=== PATIENT | female | born 1975 | race Native Hawaiian/Other Pacific Islander ===

== ENCOUNTER 2017-07-31 19:23 | Emergency (ER) | payer OTHER ==
[~2017-07-31] VITALS: Ht 167.6 cm; Wt 40.8 kg
[~2017-07-31 19:23] MED LIST: ALPR1TAB61 PO; BENADRYL25 M1 PO; CLON0.5T36 PO; DICY20TA34 PO; GABA300C2 PO; HYDR-2748 PO; HYDR10TA47 PO; LISI10TA11 PO; PRED5TAB3 PO; PREG50CA PO; RANITIDINE 150150 MG PO; TOPAMAX25 MG PO; TOPIRAMATE50 MG PO; TRAZ50TA36 PO; ZOFRAN8 MG PO
[2017-07-31 21:59] LABS: PLATELET COUNT 310 K/uL (152-353)
[2017-07-31 22:08] LABS: POTASSIUM 2.8 mmol/L (3.6-5.2)
[2017-08-01 03:27] VITALS: BP 129/75; TEMP 98.1
== END 2017-08-01 03:34 | disposition home or self-care (01) ==
LOC: ED 19:23
PROVIDERS: Family Medicine
DX: N39.0 Urinary tract infection, site not specified (principal); R10.84 Generalized abdominal pain; K21.9 Gastro-esophageal reflux disease without esophagitis; E86.0 Dehydration; E87.6 Hypokalemia
CPT/HCPCS: 36415; 80053; 81000; 83605; 85027; 87077; 87086; 87088; 87186; 96361; 96365; 99284

== ENCOUNTER 2018-04-24 10:03 | Outpatient (CLI) | payer OTHER | END 2018-04-24 19:25 | disposition home or self-care (01) | LOC: INF 10:03 → EDSTATUS 10:27 → INF 19:25 | DX: N39.0 Urinary tract infection, site not specified (principal) ==

== ENCOUNTER 2018-09-22 06:40 | Emergency (ER) | payer OTHER ==
[~2018-09-22] VITALS: Ht 167.6 cm; Wt 54.4 kg
[2018-09-22] MEDS ORDERED: KEPPRA1000 MG PO (07:08)
[2018-09-22] MEDS ORDERED: ZOFRAN8 MG PO (07:11)
[2018-09-22] MEDS ORDERED: CAFF PO (07:11)
[2018-09-22] MEDS ORDERED: ASA PO (07:11)
[2018-09-22] MEDS ORDERED: BUTAL PO (07:11)
[2018-09-22] MEDS ORDERED: PROM25TA52 PO (07:12)
[2018-09-22 08:15] LABS: PLATELET COUNT 269 K/uL (152-353)
[2018-09-22 08:21] LABS: POTASSIUM 4.6 mmol/L (3.6-5.2)
[2018-09-22 10:55] VITALS: BP 138/88; TEMP 98
== END 2018-09-22 10:55 | disposition home or self-care (01) ==
LOC: ED 06:40
PROVIDERS: Family Medicine
PROC: 0T9B70Z Drainage of Bladder with Drainage Device, Via Natural or Artificial Opening (ICD-10-PCS; principal; 2018-09-22)
DX: N39.0 Urinary tract infection, site not specified (principal); R33.8 Other retention of urine
CPT/HCPCS: 36415; 51702; 80053; 81000; 85027; 87070; 87077; 87086; 87088; 87186; 99283; J1885

== ENCOUNTER 2018-10-19 18:10 | Emergency (ER) | payer OTHER ==
[~2018-10-19] VITALS: Ht 167.6 cm; Wt 54.4 kg
[~2018-10-19 18:10] MED LIST changes: +ASA PO; +BUTAL PO; +CAFF PO; +KEPPRA1000 MG PO; +PROM25TA52 PO
[2018-10-19 19:20] LABS: PLATELET COUNT 282 K/uL (152-353)
[2018-10-19 22:35] VITALS: BP 122/80; TEMP 98
== END 2018-10-19 22:41 | disposition home or self-care (01) ==
LOC: ED 18:10
DX: N30.80 Other cystitis without hematuria (principal)
CPT/HCPCS: 36415; 74022; 80053; 81000; 83605; 85027; 87086; 87088; 96365; 96375; 99284; J1580; J1885; J2550

== ENCOUNTER 2019-02-27 18:48 | Outpatient (CLI) | payer OTHER | END 2019-02-27 18:54 | disposition short-term general hospital (02) | LOC: AMB 18:48 | DX: R11.2 Nausea with vomiting, unspecified (principal); R31.9 Hematuria, unspecified | CPT/HCPCS: A0425; A0427 ==

== ENCOUNTER 2019-02-27 19:08 | Emergency (ER) | payer OTHER ==
[~2019-02-27] VITALS: Ht 167.6 cm; Wt 54.4 kg
[2019-02-27 19:14] VITALS: BP 121/89; TEMP 99
== END 2019-02-27 19:40 | disposition home or self-care (01) ==
LOC: ED 19:08
DX: R31.9 Hematuria, unspecified (principal); R10.84 Generalized abdominal pain
CPT/HCPCS: 99281

== ENCOUNTER 2019-04-27 10:22 | Emergency (ER) | payer OTHER ==
[~2019-04-27] VITALS: Ht 167.6 cm; Wt 54.4 kg
[2019-04-27 10:32] VITALS: TEMP 98.2
[2019-04-27 13:22] VITALS: BP 144/76
== END 2019-04-27 13:21 | disposition home or self-care (01) ==
LOC: ED 10:22
DX: F41.8 Other specified anxiety disorders (principal); R06.4 Hyperventilation; Z98.890 Other specified postprocedural states
CPT/HCPCS: 85379; 93005; 99283

== ENCOUNTER 2019-04-29 11:12 | Outpatient (CLI) | payer OTHER ==
[2019-04-29 12:19] LABS: POTASSIUM 4.3 mmol/L (3.6-5.2)
== END 2019-04-29 23:49 | disposition home or self-care (01) ==
LOC: LAB 11:12
PROVIDERS: Internal Medicine
DX: N39.0 Urinary tract infection, site not specified (principal); B96.20 Unspecified Escherichia coli [E. coli] as the cause of diseases classified elsewhere; Z79.2 Long term (current) use of antibiotics
CPT/HCPCS: 80053; 80200

== ENCOUNTER 2019-05-04 08:57 | Outpatient (CLI) | payer OTHER ==
[2019-05-04 15:20] LABS: POTASSIUM 3.9 mmol/L (3.6-5.2)
== END 2019-05-04 22:58 | disposition home or self-care (01) ==
LOC: LAB 08:57
PROVIDERS: Internal Medicine
DX: N39.0 Urinary tract infection, site not specified (principal); B96.20 Unspecified Escherichia coli [E. coli] as the cause of diseases classified elsewhere; Z79.2 Long term (current) use of antibiotics
CPT/HCPCS: 80053; 80200

== ENCOUNTER 2019-12-23 12:17 | Emergency (ER) | payer OTHER ==
[~2019-12-23] VITALS: Ht 167.6 cm; Wt 58.1 kg
[2019-12-23 12:26] VITALS: TEMP 98.4
[2019-12-23 14:13] VITALS: BP 133/59
== END 2019-12-23 14:13 | disposition home or self-care (01) ==
LOC: ED 12:17
DX: R82.81 Pyuria (principal)
CPT/HCPCS: 81000; 87077; 87086; 87088; 87186; 96372; 99283; J1885

== ENCOUNTER 2019-12-29 04:39 | Emergency (ER) | payer OTHER ==
[~2019-12-29] VITALS: Ht 167.6 cm; Wt 58.1 kg
[2019-12-29 05:11] VITALS: BP 154/91; TEMP 97.9
== END 2019-12-29 05:11 | disposition home or self-care (01) ==
LOC: ED 04:39
DX: Z46.6 Encounter for fitting and adjustment of urinary device (principal)
CPT/HCPCS: 99282

== ENCOUNTER 2020-01-18 16:19 | Outpatient (CLI) | payer OTHER | END 2020-01-18 16:22 | disposition short-term general hospital (02) | LOC: AMB 16:19 | DX: M25.571 Pain in right ankle and joints of right foot (principal); M79.604 Pain in right leg; M25.551 Pain in right hip; M54.5 Low back pain; M54.2 Cervicalgia; V89.2XXA Person injured in unspecified motor-vehicle accident, traffic, initial encounter; Y92.89 Other specified places as the place of occurrence of the external cause | CPT/HCPCS: A0425; A0427 ==

== ENCOUNTER 2020-01-18 16:29 | Emergency (ER) | payer OTHER ==
[~2020-01-18] VITALS: Ht 167.6 cm; Wt 58.1 kg
[2020-01-18 16:54] LABS: PLATELET COUNT 182 K/uL (152-353)
[2020-01-18 17:02] LABS: POTASSIUM 3.4 mmol/L (3.6-5.2)
[2020-01-18 21:16] VITALS: BP 136/88; TEMP 98.4
== END 2020-01-18 21:17 | disposition home or self-care (01) ==
LOC: ED 16:29
PROVIDERS: Family Medicine
DX: N39.0 Urinary tract infection, site not specified (principal); E87.6 Hypokalemia; S32.19XA Other fracture of sacrum, initial encounter for closed fracture; S32.2XXA Fracture of coccyx, initial encounter for closed fracture; V89.2XXA Person injured in unspecified motor-vehicle accident, traffic, initial encounter; Y92.89 Other specified places as the place of occurrence of the external cause
CPT/HCPCS: 80053; 80307; 81000; 85027; 87086; 87088; 96374; 99284; J1885

== ENCOUNTER 2020-06-24 16:05 | Emergency (ER) | payer OTHER ==
[~2020-06-24] VITALS: Ht 167.6 cm; Wt 54.4 kg
[2020-06-24 16:35] VITALS: BP 193/94; TEMP 99.8
== END 2020-06-24 17:30 | disposition home or self-care (01) ==
LOC: ED 16:05
DX: M54.5 Low back pain (principal)
CPT/HCPCS: 99281

== ENCOUNTER 2020-12-24 11:19 | Emergency (ER) | payer OTHER ==
[~2020-12-24] VITALS: Ht 167.6 cm; Wt 56.7 kg
[2020-12-24 11:55] VITALS: BP 158/96; TEMP 98.8
== END 2020-12-24 11:55 | disposition home or self-care (01) ==
LOC: ED 11:19
PROC: 0TWBX0Z Revision of Drainage Device in Bladder, External Approach (ICD-10-PCS; principal; 2020-12-24)
DX: T83.098A Other mechanical complication of other urinary catheter, initial encounter (principal); W54.8XXA Other contact with dog, initial encounter; Y92.89 Other specified places as the place of occurrence of the external cause
CPT/HCPCS: 99281

== ENCOUNTER 2021-07-09 08:42 | Emergency (ER) | payer OTHER ==
[~2021-07-09] VITALS: Ht 167.6 cm; Wt 59.0 kg
[2021-07-09 08:42] VITALS: TEMP 97.5
[2021-07-09 09:56] LABS: POTASSIUM 4.4 mmol/L (3.6-5.2)
[2021-07-09 10:04] LABS: PLATELET COUNT 266 K/uL (152-353)
[2021-07-09 12:32] VITALS: BP 137/82
== END 2021-07-09 12:32 | disposition home or self-care (01) ==
LOC: ED 08:45
PROVIDERS: Emergency Medicine Emergency Medical Services
PROC: 0T2BX0Z Change Drainage Device in Bladder, External Approach (ICD-10-PCS; principal; 2021-07-09)
DX: R31.9 Hematuria, unspecified (principal)
CPT/HCPCS: 80053; 81000; 85027; 87077; 87086; 87088; 87186; 96360; 96375; 99284; J1885; J2270; Q9963

== ENCOUNTER 2021-11-10 15:10 | Emergency (ER) | payer OTHER ==
[~2021-11-10] VITALS: Ht 167.6 cm; Wt 59.0 kg
[2021-11-10 15:26] VITALS: BP 153/105; TEMP 97.4
== END 2021-11-10 16:14 | disposition home or self-care (01) ==
LOC: ED 15:10
PROC: 0T9B70Z Drainage of Bladder with Drainage Device, Via Natural or Artificial Opening (ICD-10-PCS; principal; 2021-11-10)
DX: F41.8 Other specified anxiety disorders (principal); R39.198 Other difficulties with micturition
CPT/HCPCS: 51702; 99282

== ENCOUNTER 2021-11-18 12:10 | Emergency (ER) | payer OTHER ==
[~2021-11-18] VITALS: Ht 167.6 cm; Wt 58.1 kg
[2021-11-18 15:45] VITALS: BP 171/84; TEMP 98.2
== END 2021-11-18 15:45 | disposition home or self-care (01) ==
LOC: ED 12:10
DX: M54.59 Other low back pain (principal); G89.29 Other chronic pain
CPT/HCPCS: 81000; 96365; 96372; 96375; 99284; J0696; J1580; J1642; J1885; J2360; J2405

== ENCOUNTER 2022-01-27 09:19 | Inpatient (IN) | payer OTHER ==
[~2022-01-27] VITALS: Ht 167.6 cm; Wt 64.5 kg
[~2022-01-27 09:19] MED LIST changes: +ONDANSETRON4 M2 PO
[2022-01-27 09:20] VITALS: BP 118/72; TEMP 97.66
[2022-01-27 10:00] VITALS: BP 138/73
[2022-01-27 10:04] LABS: PLATELET COUNT 167 K/uL (152-353)
[2022-01-27 10:11] LABS: POTASSIUM 3.2 mmol/L (3.6-5.2)
[2022-01-27 11:00] VITALS: BP 166/92
[2022-01-27 12:23] VITALS: BP 169/74; TEMP 97.9; Ht 167.6 cm; Wt 64.5 kg
[2022-01-27 16:00] VITALS: BP 133/72; TEMP 97.9
[2022-01-27 20:00] VITALS: BP 112/62; TEMP 98.1
[2022-01-27] MEDS ORDERED: CYAN10009 IM (20:14)
[2022-01-27] MEDS ORDERED: CYCLOBENZAPRINE10 MG PO (20:15)
[2022-01-27] MEDS ORDERED: FLUDROCORT0.1 MG PO (20:19)
[2022-01-27] MEDS ORDERED: HYDROCORT10 MG PO (20:24)
[2022-01-27] MEDS ORDERED: ROWEEPRA500 MG PO (20:27)
[2022-01-27] MEDS ORDERED: OXYCODONE HYDROC5 M1 PO (20:28)
[2022-01-27] MEDS ORDERED: QUETIAPINE50 MG PO (20:30)
[2022-01-27] MEDS ORDERED: CLON1TAB18 PO (20:31)
[2022-01-27] MEDS ORDERED: PANTOPRAZOLE SO40 M1 PO (20:37)
[2022-01-28] VITALS (8 sets, daily range): BP systolic 121–171; BP diastolic 66–90; TEMP 97.7–98.2
[2022-01-28 05:24] LABS: PLATELET COUNT 133 K/uL (152-353)
[2022-01-28 05:44] LABS: POTASSIUM 3.8 mmol/L (3.6-5.2)
[2022-01-29 03:46] VITALS: BP 161/82; TEMP 97.9
[2022-01-29 08:00] VITALS: BP 157/84; TEMP 97.9
[2022-01-29 12:00] VITALS: BP 136/87; TEMP 99.2
[2022-01-29 16:00] VITALS: BP 133/79; TEMP 98.4
[2022-01-29 19:49] VITALS: BP 150/70; TEMP 98.2
[2022-01-29 23:41] VITALS: BP 104/58
[2022-01-30 04:00] VITALS: BP 137/79; TEMP 97.5
[2022-01-30 05:38] LABS: PLATELET COUNT 145 K/uL (152-353)
[2022-01-30 05:45] LABS: POTASSIUM 3.5 mmol/L (3.6-5.2)
[2022-01-30 08:00] VITALS: BP 147/73; TEMP 98.2
[2022-01-30 12:00] VITALS: BP 142/68; TEMP 98.6
== END 2022-01-30 21:06 | disposition home or self-care (01) | DRG 699 ==
LOC: ED 09:19 → MED/SURG 11:00
PROVIDERS: Emergency Medicine; ADMIT Internal Medicine Endocrinology, Diabetes & Metabolism; ATTEND Internal Medicine Endocrinology, Diabetes & Metabolism
DX: T83.518A Infection and inflammatory reaction due to other urinary catheter, initial encounter (principal); N10 Acute pyelonephritis; G40.802 Other epilepsy, not intractable, without status epilepticus; E27.1 Primary adrenocortical insufficiency; K50.90 Crohn's disease, unspecified, without complications; B96.20 Unspecified Escherichia coli [E. coli] as the cause of diseases classified elsewhere; I10 Essential (primary) hypertension; G89.4 Chronic pain syndrome; Y65.8 Other specified misadventures during surgical and medical care
CPT/HCPCS: 80048; 80053; 81000; 85027; 87077; 87086; 87088; 87186; 87635; 96360; 96365; 96375; 99284; J1170; J1335; J1650; J1885; J1940; J2405; J2543; U0003

== ENCOUNTER 2022-01-31 13:35 | Emergency (ER) | payer OTHER ==
[~2022-01-31] VITALS: Ht 167.6 cm; Wt 67.1 kg
[~2022-01-31 13:35] MED LIST changes: +CLON1TAB18 PO; +CYAN10009 IM; +CYCLOBENZAPRINE10 MG PO; +FLUDROCORT0.1 MG PO; +HYDROCORT10 MG PO; +OXYCODONE HYDROC5 M1 PO; +PANTOPRAZOLE SO40 M1 PO; +QUETIAPINE50 MG PO; +ROWEEPRA500 MG PO
[2022-01-31 13:40] VITALS: TEMP 96.9
[2022-01-31 15:00] VITALS: BP 145/79
== END 2022-01-31 15:05 | disposition home or self-care (01) ==
LOC: ED 13:35
DX: G89.29 Other chronic pain (principal); Z93.6 Other artificial openings of urinary tract status
CPT/HCPCS: 81000; 96374; 96375; 99284; J1170; J1885; J2405

== ENCOUNTER 2022-02-01 14:41 | Outpatient (CLI) | payer OTHER ==
[~2022-02-01] VITALS: Ht 167.6 cm; Wt 59.0 kg
== END 2022-02-01 21:49 | disposition home or self-care (01) ==
LOC: INF 14:41
PROVIDERS: ATTEND Internal Medicine Endocrinology, Diabetes & Metabolism
DX: N30.80 Other cystitis without hematuria (principal)
CPT/HCPCS: 96365; J1335

== ENCOUNTER 2022-02-02 13:19 | Outpatient (CLI) | payer OTHER ==
[~2022-02-02] VITALS: Ht 167.6 cm; Wt 62.1 kg
== END 2022-02-02 19:24 | disposition home or self-care (01) ==
LOC: INF 13:19
PROVIDERS: ATTEND Internal Medicine Endocrinology, Diabetes & Metabolism
DX: N30.80 Other cystitis without hematuria (principal)
CPT/HCPCS: 96360; J1335

== ENCOUNTER 2022-02-03 12:57 | Emergency (ER) | payer OTHER ==
[~2022-02-03] VITALS: Ht 167.6 cm; Wt 62.1 kg
[2022-02-03 13:13] VITALS: BP 161/96; TEMP 97
[2022-02-03 15:21] LABS: PLATELET COUNT 207 K/uL (152-353)
[2022-02-03 15:30] LABS: POTASSIUM 3.9 mmol/L (3.6-5.2)
== END 2022-02-03 17:12 | disposition home or self-care (01) ==
LOC: ED 12:57
PROVIDERS: Emergency Medicine
DX: N39.0 Urinary tract infection, site not specified (principal)
CPT/HCPCS: 36415; 80053; 81000; 85027; 87040; 87077; 87086; 87088; 87185; 87186; 87205; 96365; 96375; 99284; J1642; J2185

== ENCOUNTER 2022-02-04 13:46 | Outpatient (CLI) | payer OTHER ==
[~2022-02-04] VITALS: Ht 152.4 cm; Wt 68.0 kg
== END 2022-02-04 20:12 | disposition home or self-care (01) ==
LOC: INF 13:46
PROVIDERS: ATTEND Internal Medicine Endocrinology, Diabetes & Metabolism
DX: N30.00 Acute cystitis without hematuria (principal)
CPT/HCPCS: 96365; J1335

== ENCOUNTER 2022-02-07 12:46 | Outpatient (CLI) | payer OTHER ==
[~2022-02-07] VITALS: Ht 167.6 cm; Wt 58.9 kg
== END 2022-02-07 20:42 | disposition home or self-care (01) ==
LOC: INF 12:46
PROVIDERS: ATTEND Internal Medicine Endocrinology, Diabetes & Metabolism
DX: N30.00 Acute cystitis without hematuria (principal)
CPT/HCPCS: 96372; 96374; J1335

== ENCOUNTER 2022-02-08 12:19 | Outpatient (CLI) | payer OTHER ==
[~2022-02-08] VITALS: Ht 167.6 cm; Wt 68.0 kg
[2022-02-08 13:10] VITALS: BP 120/87; TEMP 98
[2022-02-08 13:40] VITALS: BP 122/88; TEMP 98
== END 2022-02-08 19:38 | disposition home or self-care (01) ==
LOC: INF 12:19
PROVIDERS: ATTEND Internal Medicine Endocrinology, Diabetes & Metabolism
DX: N30.00 Acute cystitis without hematuria (principal)
CPT/HCPCS: 96372; J1335

== ENCOUNTER 2022-02-08 17:44 | Emergency (ER) | payer OTHER ==
[~2022-02-08] VITALS: Ht 167.6 cm; Wt 68.0 kg
[2022-02-08 19:28] VITALS: BP 160/89; TEMP 97.3
== END 2022-02-08 19:28 | disposition home or self-care (01) ==
LOC: ED 17:44
DX: N30.10 Interstitial cystitis (chronic) without hematuria (principal); N39.0 Urinary tract infection, site not specified; G89.29 Other chronic pain
CPT/HCPCS: 81000; 87086; 87088; 96372; 99283; J1885; J2405

== ENCOUNTER 2022-02-09 12:30 | Outpatient (CLI) | payer OTHER ==
[2022-02-09 12:50] VITALS: BP 97/56; TEMP 98
[2022-02-09 13:15] VITALS: BP 100/60; TEMP 98
== END 2022-02-09 19:35 | disposition home or self-care (01) ==
LOC: INF 12:30
PROVIDERS: ATTEND Internal Medicine Endocrinology, Diabetes & Metabolism
DX: N30.00 Acute cystitis without hematuria (principal)
CPT/HCPCS: 96372; J1335; J1642

== ENCOUNTER 2022-02-10 12:24 | Outpatient (CLI) | payer OTHER ==
[2022-02-10 12:20] VITALS: BP 142/73; TEMP 98.4
== END 2022-02-10 21:39 | disposition home or self-care (01) ==
LOC: INF 12:24
PROVIDERS: ATTEND Internal Medicine Endocrinology, Diabetes & Metabolism
DX: N30.00 Acute cystitis without hematuria (principal)
CPT/HCPCS: 96372; J1335

== ENCOUNTER 2022-02-11 12:19 | Outpatient (CLI) | payer OTHER ==
[~2022-02-11] VITALS: Ht 167.6 cm; Wt 62.1 kg
== END 2022-02-11 19:12 | disposition home or self-care (01) ==
LOC: INF 12:19
PROVIDERS: ATTEND Internal Medicine Endocrinology, Diabetes & Metabolism
DX: N30.00 Acute cystitis without hematuria (principal)
CPT/HCPCS: 96372; J1335

== ENCOUNTER 2022-03-19 23:00 | Observation (INO) | payer OTHER ==
[~2022-03-19] VITALS: Ht 167.6 cm; Wt 66.5 kg
[2022-03-19 23:00] VITALS: BP 148/88; TEMP 98.2
[~2022-03-19 23:00] MED LIST changes: +OXYCODONE HYDRO10 MG PO
[2022-03-20] VITALS (12 sets, daily range): BP systolic 108–155; BP diastolic 57–87; TEMP 97.6–98.4; Ht 167.6 cm; Wt 66.5 kg
[2022-03-20 01:47] LABS: PLATELET COUNT 166 K/uL (152-353)
[2022-03-20 02:07] LABS: POTASSIUM 3.5 mmol/L (3.6-5.2)
[2022-03-20] MEDS ORDERED: MONUROL PO (06:50)
[2022-03-20] MEDS ORDERED: MINOCYCLINE HY100 MG PO (06:52)
[2022-03-20] MEDS ORDERED: ACIDOPHILUS PO (06:56)
[2022-03-20] MEDS ORDERED: AMITRIPTYLINE H25 MG PO (07:26)
[2022-03-20] MEDS ORDERED: HYDR10TA PO (07:28)
[2022-03-20 08:30] LABS: PLATELET COUNT 150 K/uL (152-353)
[2022-03-20 08:31] LABS: POTASSIUM 3.4 mmol/L (3.6-5.2)
[2022-03-21 04:09] VITALS: BP 122/71; TEMP 97.7
[2022-03-21 04:27] LABS: PLATELET COUNT 133 K/uL (152-353)
[2022-03-21 04:52] LABS: POTASSIUM 3.6 mmol/L (3.6-5.2)
[2022-03-21 08:00] VITALS: BP 124/75; TEMP 97.6
[2022-03-21 12:00] VITALS: BP 153/71; TEMP 97.9
== END 2022-03-21 15:15 | disposition home or self-care (01) ==
LOC: ED 23:00 → MED/SURG 03-20 04:20
PROVIDERS: Emergency Medicine; ADMIT Internal Medicine; ATTEND Internal Medicine
DX: N36.0 Urethral fistula (principal); N39.0 Urinary tract infection, site not specified; B96.5 Pseudomonas (aeruginosa) (mallei) (pseudomallei) as the cause of diseases classified elsewhere; F41.8 Other specified anxiety disorders; E27.1 Primary adrenocortical insufficiency; G40.802 Other epilepsy, not intractable, without status epilepticus; K21.9 Gastro-esophageal reflux disease without esophagitis; G89.4 Chronic pain syndrome; J44.9 Chronic obstructive pulmonary disease, unspecified
CPT/HCPCS: 36415; 36591; 80048; 80053; 81000; 83690; 85027; 87088; 87635; 96360; 96361; 96374; 99220; 99284; G0378; J1642; J2270; Q9963; U0003

== ENCOUNTER 2022-05-11 12:23 | Emergency (ER) | payer OTHER ==
[~2022-05-11] VITALS: Ht 167.6 cm; Wt 66.2 kg
[~2022-05-11 12:23] MED LIST changes: +ACIDOPHILUS PO; +AMITRIPTYLINE H25 MG PO; +HYDR10TA PO; +MINOCYCLINE HY100 MG PO; +MONUROL PO
[2022-05-11 12:32] VITALS: BP 116/63; TEMP 97.5
[2022-05-11 13:12] LABS: PLATELET COUNT 183 K/uL (152-353)
== END 2022-05-11 14:13 | disposition home or self-care (01) ==
LOC: ED 12:23
PROVIDERS: Family Medicine
DX: N39.0 Urinary tract infection, site not specified (principal); R10.31 Right lower quadrant pain; R10.32 Left lower quadrant pain; E87.6 Hypokalemia; Z98.890 Other specified postprocedural states
CPT/HCPCS: 80053; 81002; 81015; 85027; 87086; 87088; 96372; 99283; J1885; J2550

== ENCOUNTER 2022-06-19 10:29 | Outpatient (CLI) | payer OTHER ==
[2022-06-19 11:10] LABS: POTASSIUM 2.9 mmol/L (3.6-5.2)
[2022-06-19 11:36] LABS: PLATELET COUNT 288 K/uL (152-353)
== END 2022-06-19 19:20 | disposition home or self-care (01) ==
LOC: LAB 10:29
PROVIDERS: ATTEND Internal Medicine Geriatric Medicine
DX: R78.81 Bacteremia (principal)
CPT/HCPCS: 80053; 85027

== ENCOUNTER 2022-06-20 21:19 | Emergency (ER) | payer OTHER ==
[~2022-06-20] VITALS: Ht 167.6 cm; Wt 59.0 kg
[2022-06-20 23:40] VITALS: BP 113/71; TEMP 98.5
== END 2022-06-20 23:45 | disposition home or self-care (01) ==
LOC: ED 21:19
DX: R10.84 Generalized abdominal pain (principal)
CPT/HCPCS: 96372; 99282; J1170; J2405

== ENCOUNTER 2022-06-21 15:15 | Emergency (ER) | payer OTHER ==
[~2022-06-21] VITALS: Ht 167.6 cm; Wt 59.0 kg
[2022-06-21 15:30] VITALS: BP 119/69; TEMP 97.1
[2022-06-21 16:01] LABS: PLATELET COUNT 216 K/uL (152-353)
[2022-06-21 16:10] LABS: POTASSIUM 2.9 mmol/L (3.6-5.2)
== END 2022-06-21 16:10 | disposition still patient (30) ==
LOC: ED 15:15
PROVIDERS: Hospitalist
DX: G89.29 Other chronic pain (principal); F15.90 Other stimulant use, unspecified, uncomplicated; E87.6 Hypokalemia
CPT/HCPCS: 80053; 80307; 80320; 81002; 81015; 83690; 85027; 87088; 96374; 96375; 99284; J1885; J2405

== ENCOUNTER 2022-06-26 12:49 | Outpatient (CLI) | payer OTHER ==
[2022-06-26 13:18] LABS: PLATELET COUNT 185 K/uL (152-353)
== END 2022-06-26 19:00 | disposition home or self-care (01) ==
LOC: LAB 12:49
PROVIDERS: ATTEND Internal Medicine Geriatric Medicine
DX: N39.0 Urinary tract infection, site not specified (principal); Z45.2 Encounter for adjustment and management of vascular access device; R78.81 Bacteremia
CPT/HCPCS: 80053; 85027

== ENCOUNTER 2022-07-17 18:25 | Emergency (ER) | payer OTHER ==
[~2022-07-17] VITALS: Ht 167.6 cm; Wt 60.8 kg
[2022-07-17 18:35] VITALS: TEMP 98.6
[2022-07-17 20:16] VITALS: BP 167/83
== END 2022-07-17 20:16 | disposition home or self-care (01) ==
LOC: ED 18:25
DX: T82.594A Other mechanical complication of infusion catheter, initial encounter (principal); Z98.890 Other specified postprocedural states; Z45.2 Encounter for adjustment and management of vascular access device; Y82.8 Other medical devices associated with adverse incidents; Y92.89 Other specified places as the place of occurrence of the external cause
CPT/HCPCS: 99281; J1642

== ENCOUNTER 2022-07-19 14:31 | Outpatient (CLI) | payer OTHER ==
[2022-07-19 14:53] LABS: PLATELET COUNT 196 K/uL (152-353)
[2022-07-19 15:26] LABS: POTASSIUM 3.1 mmol/L (3.6-5.2)
== END 2022-07-19 21:06 | disposition home or self-care (01) ==
LOC: LAB 14:31
PROVIDERS: ATTEND Internal Medicine Geriatric Medicine
DX: N39.0 Urinary tract infection, site not specified (principal)
CPT/HCPCS: 80053; 85027

== ENCOUNTER 2022-07-20 18:42 | Emergency (ER) | payer OTHER ==
[~2022-07-20] VITALS: Ht 167.6 cm; Wt 56.7 kg
[2022-07-20 18:50] VITALS: BP 124/86; TEMP 98.1
[2022-07-20 20:55] LABS: PLATELET COUNT 202 K/uL (152-353)
== END 2022-07-20 22:45 | disposition home or self-care (01) ==
LOC: ED 18:42
PROVIDERS: Family Medicine
DX: L25.9 Unspecified contact dermatitis, unspecified cause (principal); E87.6 Hypokalemia
CPT/HCPCS: 80053; 85027; 87502; 96374; 96375; 99284; J1200; J1885

== ENCOUNTER 2022-12-13 15:03 | Emergency (ER) | payer OTHER ==
[~2022-12-13] VITALS: Ht 167.6 cm; Wt 62.1 kg
[2022-12-13 15:03] VITALS: BP 154/75; TEMP 97.3
== END 2022-12-13 18:30 | disposition left against medical advice (07) ==
LOC: ED 15:11
DX: N39.0 Urinary tract infection, site not specified (principal); Z53.29 Procedure and treatment not carried out because of patient's decision for other reasons
CPT/HCPCS: 81000; 87077; 87086; 87088; 96374; 99284; J1885; J2405

== ENCOUNTER 2023-03-27 10:49 | Emergency (ER) | payer OTHER ==
[~2023-03-27] VITALS: Ht 167.6 cm; Wt 59.0 kg
[2023-03-27 11:07] VITALS: TEMP 97.1
== END 2023-03-27 12:20 | disposition home or self-care (01) ==
LOC: ED 10:49
PROC: 0T9B30Z Drainage of Bladder with Drainage Device, Percutaneous Approach (ICD-10-PCS; principal; 2023-03-27)
DX: N39.0 Urinary tract infection, site not specified (principal); N31.8 Other neuromuscular dysfunction of bladder; M54.9 Dorsalgia, unspecified; R10.9 Unspecified abdominal pain
CPT/HCPCS: 51702; 81000; 87077; 87086; 87088; 87186; 99283

== ENCOUNTER 2023-03-27 18:51 | Emergency (ER) | payer OTHER ==
[~2023-03-27] VITALS: Ht 167.6 cm; Wt 59.0 kg
[2023-03-27 19:04] VITALS: BP 114/48; TEMP 99.3
[2023-03-27 20:43] LABS: PLATELET COUNT 176 K/uL (152-353)
[2023-03-27 20:53] LABS: POTASSIUM 3.9 mmol/L (3.6-5.2)
== END 2023-03-28 | disposition home or self-care (01) ==
LOC: ED 18:51
PROVIDERS: Family Medicine
DX: N39.0 Urinary tract infection, site not specified (principal); R10.9 Unspecified abdominal pain; G89.29 Other chronic pain; F17.210 Nicotine dependence, cigarettes, uncomplicated
CPT/HCPCS: 36415; 80053; 80307; 81000; 82150; 83690; 85027; 99282

== ENCOUNTER 2023-03-29 16:03 | Emergency (ER) | payer OTHER ==
[~2023-03-29] VITALS: Ht 167.6 cm; Wt 56.7 kg
[2023-03-29 16:10] VITALS: BP 169/89; TEMP 98.7
[2023-03-29 17:32] LABS: PLATELET COUNT 171 K/uL (152-353)
[2023-03-29 17:37] LABS: SODIUM 143 mmol/L (136-145)
== END 2023-03-29 18:15 | disposition left against medical advice (07) ==
LOC: ED 16:03
PROVIDERS: Family Medicine
DX: G40.909 Epilepsy, unspecified, not intractable, without status epilepticus (principal); F19.90 Other psychoactive substance use, unspecified, uncomplicated; N39.0 Urinary tract infection, site not specified
CPT/HCPCS: 36415; 80053; 80185; 80307; 81000; 82150; 83690; 85027; 87077; 87086; 87088; 87186; 99283

== ENCOUNTER 2024-01-06 16:22 | Emergency (ER) | payer OTHER ==
[~2024-01-06] VITALS: Ht 167.6 cm; Wt 54.4 kg
[2024-01-06 16:22] VITALS: BP 108/61; TEMP 98.7
[~2024-01-06 16:22] MED LIST changes: +HYDR25CA25 PO; +QUET100T2 PO
[2024-01-06 17:11] LABS: PLATELET COUNT 208 K/uL (152-353)
[2024-01-06 17:17] LABS: POTASSIUM 3.1 mmol/L (3.6-5.2)
== END 2024-01-06 18:45 | disposition left against medical advice (07) ==
LOC: ED 16:22
PROVIDERS: Family Medicine
DX: R31.9 Hematuria, unspecified (principal); M79.604 Pain in right leg; Z53.29 Procedure and treatment not carried out because of patient's decision for other reasons
CPT/HCPCS: 36415; 80053; 85027; 99283